=== PATIENT | female | born 1990 | race African-American/Black ===

== ENCOUNTER 2023-05-08 14:09 | Inpatient (IN) | payer OTHER ==
[2023-05-08] VITALS (17 sets, daily range): BP systolic 116–146; BP diastolic 59–90; PULSE 85–108; TEMP 97.5–98
[2023-05-08] MEDS ORDERED: LR & Oxytocin 500 ML IV SCH (14:45)
[2023-05-08] MEDS ORDERED: LR 1,000 ML IV SCH (14:45)
[2023-05-08] MEDS ORDERED: PRENATAL (15:11)
[2023-05-08] MEDS ORDERED: UNISOM25 MG PO (15:11)
[2023-05-08] MEDS ORDERED: EUTHYROX25 MCG PO (15:11)
[2023-05-08 16:04] LABS: BASO % 0.6 % (0.0-2.0); GRAN # 4.9 K/mm3 (1.4-6.5); GRAN % 69.1 % (42.2-75.2); HEMATOCRIT 38.7 % (37.0-47.0); HEMOGLOBIN 13.6 g/dl (12.5-16.0); LYMPH # 1.4 K/mm3 (1.2-3.4); LYMPH % 19.3 % (20.0-51.0); MEAN CELL VOLUME 87 fl (80.0-100.0); MEAN CORPUSCULAR HEMOGLOBIN 31 pg (27-31); MEAN CORPUSCULAR HGB CONC 35 g/dl (33.0-37.0); MONO # 0.7 K/mm3 (0.1-0.6); MONO % 10.4 % (1.7-9.3); PLATELET COUNT 269 K/mm3 (130-400); RED BLOOD COUNT 4.43 M/mm3 (4.10-5.30); REDCELL DISTRIBUTION WIDTH-CV 12.2 % (11.5-14.5)
[2023-05-08 16:09] LABS: ALBUMIN 2.9 gm/dL (3.5-5.0); CALCIUM 9.7 mg/dL (8.4-10.2); CREATININE, serum 0.83 mg/dL (0.57-1.11); POTASSIUM 3.7 mmol/L (3.5-4.5); TOTAL PROTEIN 6.9 gm/dL (6.2-8.1)
[2023-05-08 16:45] LABS: BILIRUBIN,TOTAL 0.3 mg/dL (0.2-1.2)
[2023-05-08 17:19] LABS: COLLECTION METHOD CLEAN CATCH
[2023-05-08 17:26] LABS: PH 6.5 (5.0-8.5); URINE APPEARANCE CLEAR (CLEAR/HAZY); URINE BLOOD NEGATIVE (NEGATIVE); URINE COLOR YELLOW (YELLOW); URINE GLUCOSE NEGATIVE (NEGATIVE); URINE KETONE NEGATIVE (NEGATIVE); URINE NITRATE NEGATIVE (NEGATIVE); URINE PROTEIN(semi-quant) NEGATIVE (NEGATIVE); URINE UROBILINOGEN 0.2 E.U/dL (0.2-1.0)
--- NOTE | 2023-05-08 18:45 | NUR ---
Pt standing at the side of the bed, wireless monitor on and monitoring status. Pt coping well with ctx and breathing through them at this time. Denies any needs to this RN
[2023-05-08] MEDS ORDERED: ePHEDrine 50 MG/10 ML VIAL IV PRN (19:00)
[2023-05-08] MEDS ORDERED: diphenhydrAMINE 25 MG CAP PO PRN (19:00)
[2023-05-08] MEDS ORDERED: Naloxone 0.4 MG/ML VIAL IV PRN (19:00)
[2023-05-08] MEDS ORDERED: Ondansetron 4 MG/2 ML VIAL IV PRN (19:00)
[2023-05-08] MEDS ORDERED: diphenhydrAMINE 50 MG/ML 1 ML VIAL IV PRN (19:00)
--- NOTE | 2023-05-08 19:00 | NUR ---
Pt standing next to the bed, I am at the bedside attempting to obtain heart tones. Pt is currently on the wireless monitor and I am having difficulty obtaining heart tones at this time. Pt assisted into bed to monitor status.
--- NOTE | 2023-05-08 19:15 | NUR ---
190: RN observed pt to be having tachysystole with her ctx, RN at bedside assessing ctx. 1909: Pitocin changed from 14 mU to 12 mU at this time due to tachysystole. RN at bedside monitoring maternal response.
--- NOTE | 2023-05-08 19:45 | NUR ---
1944: Pitocin decreased again at this time to 10 mU due to the continued tachysystole. Pt continues to cope with labor and the ctx well at this time.
--- NOTE | 2023-05-08 20:00 | NUR ---
2028: Pitocin decreased at this time to 8 mU due to continued tachysystole. Dr Kirk given update on pt and RN informed that Dr Kirk will be calling Dr Carrera to assume care.
[2023-05-08] MEDS ORDERED: ROPivacaine PF 0.2% 200 ML IV ONE (21:52)
--- NOTE | 2023-05-08 22:15 | NUR ---
2199: Variable decels continue to occur, Dr Carrera is on the unit assessing maternal and status. Pitocin is currently at 4 mU. 2207: Deep variable decel to the 70's noted. Pt repositioned more onto her left side, then repositioned to her right side with slow recovery. heart rate remains in the low 100's. Dr Carrera at the bedside. 2209: SVE 3/50/-2 at this time. Verbal orders to turn off pitocin given. 2211: Pitocin turned off at this time.
--- NOTE | 2023-05-08 23:00 | NUR ---
2245: Dr Carrera remains on the unit and gives a verbal order at this time to restart the pitocin at 2 mU. This RN resumes pitocin administration. 2249: Moderate variability noted on the tracing, continue to note intermittent variable decels. 2258: Variable decel noted at this time. Pt remains on her left side.
--- NOTE | 2023-05-08 23:15 | NUR ---
2309: Deep variable decel to the 60's observed at this time. RN enters room and attempts to reposition pt to aid in recovery. 2312: heart rate recovers to baseline of 125 at this time. RN remains at bedside monitoring maternal and status.
--- NOTE | 2023-05-08 23:30 | NUR ---
Continue to observe recurrent variable decels on this tracing. Moderate variability also observed. I am unable to increase the pitocin infusion due to the recurrent variable decels.
[2023-05-09] VITALS (22 sets, daily range): BP systolic 104–139; BP diastolic 56–82; PULSE 77–105; TEMP 97.5–98.1
--- NOTE | 2023-05-09 00:15 | NUR ---
Dr Carrera at the bedside assessing maternal and status. Informs pt that she has not made any cervical change at this time and that her cervix is still very posterior. Dr Carrera informs pt that the fetus is also having recurrent variable decels and that right now it isn't very worrisome, if it continues, even with position changes, the conversation for a section will need to be had. Opportunity for questions given and answered.
--- NOTE | 2023-05-09 00:30 | NUR ---
Dr Carrera remains at the bedside discussing status and wellbeing with the pt. Fetus continues to have recurrent variable decels as the discussion is ongoing. Dr Carrera informs the pt that with the recurrent decels, a is recommended at this time. Pt agrees to this plan of care and preparation for surgery is made.
[2023-05-09] MEDS ORDERED: Ondansetron 4 MG/2 ML VIAL ONE (00:34)
[2023-05-09] MEDS ORDERED: NS 20 ML IV ONE (00:34)
--- NOTE | 2023-05-09 00:50 | NUR ---
Live male fetus delivered via primary section for non-reassuring heart tones and failure to progress. Infant taken to radiant warmer after delivery and care assumed by Nursery RN's. Placenta delivered spontaneously, uterus examined by Dr Kirk and Dr Carrera and surgical procedures continued and completed.
[2023-05-09] MEDS ORDERED: fentaNYL 50 MCG/ML 5 ML VIAL ONE (00:52)
[2023-05-09] MEDS ORDERED: Oxytocin 10 UNITS/ML VIAL ONE (00:52)
[2023-05-09] MEDS ORDERED: Ketorolac 60 MG/2 ML VIAL IM ONE (01:10)
[2023-05-09] MEDS ORDERED: LR 1,000 ML IV ONE (01:24)
[2023-05-09] MEDS ORDERED: Magnes Hydrox (MOM) 80 MG/ML 30 ML CUP PO PRN (01:30)
[2023-05-09] MEDS ORDERED: Loratadine 10 MG TAB PO PRN (01:30)
[2023-05-09] MEDS ORDERED: oxyCODONE 5 MG TAB PO PRN (04:15)
[2023-05-09] MEDS ORDERED: LR 1,000 ML IV PRN (04:15)
[2023-05-09] MEDS ORDERED: Acetaminophen 500 MG TAB PO SCH (04:15)
[2023-05-09] MEDS ORDERED: Morphine 4 MG/ML VIAL IV PRN (04:15)
[2023-05-09] MEDS ORDERED: Measles/Mumps/Rubella Virus Vaccine Live w Diluent 0.5 ML VIAL SQ SCH (04:15)
[2023-05-09] MEDS ORDERED: Naloxone 0.4 MG/ML VIAL IV PRN (04:15)
[2023-05-09] MEDS ORDERED: Ondansetron 4 MG/2 ML VIAL IV PRN (04:15)
[2023-05-09] MEDS ORDERED: Ibuprofen 600 MG TAB PO SCH (07:28)
[2023-05-09] MEDS ORDERED: Sennosides/Docusate 8.6-50 MG TAB PO SCH (08:00)
[2023-05-09] MEDS ORDERED: Prenatal Vitamins/Iron/FA TAB PO SCH (09:00)
--- NOTE | 2023-05-09 09:40 | NUR ---
Initial visit attempt; Nurse with family, Media Marketing Manager left card offering congratulations and God's blessings for their son and information regarding the availability of Spiritual [facility] at [facility].
--- NOTE | 2023-05-09 10:21 | NUR ---
ATTEMPTED TO GET PATIENT OUT OF BED AND PULL OCAMPO OUT. PATIENT CAN LIFT LEGS AND MOVE WELL BUT WHEN TRYING TO STAND PATIENT CANNOT BEAR HER OWN WEIGHT. PATIENT PUT BACK INTO BED AND INFORMED WE WILL TRY AGIAN IN A COUPLE HOURS. PATIENT CLEANED UP AND PAD CHANGED. PATIENT DOES NOT WANT ANY FURTHER PAIN MEDICATION AT THIS TIME. WILL CONTINUE TO MONITOR
[2023-05-09] MEDS ORDERED: traZODone 50 MG TAB PO PRN (21:00)
[2023-05-10 04:47] LABS: HEMATOCRIT 32.7 % (37.0-47.0); HEMOGLOBIN 11.5 g/dl (12.5-16.0)
[2023-05-10] MEDS ORDERED: IBU600 MG PO (08:17)
[2023-05-10] MEDS ORDERED: TYLENOL 500MG500 MG PO (08:17)
[2023-05-10] MEDS ORDERED: ROXICODONE 55 MG/TAB PO (08:17)
[2023-05-10 09:43] VITALS: BP 122/68; PULSE 104; TEMP 97.6
--- NOTE | 2023-05-10 11:23 | NUR ---
Neurology Technician met with patient to discuss resources per her request. Patient has insurance through [facility] and she advised it is a plan specifically for students. Patient is concerned about her bill after her insurance is billed. [employer] provided Financial Assistance Application, which patient completed and returned. [employer] emailed the completed FAA to Desire, Financial Counselor. TYRONE also provided Desire's contact information to patient. 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 Patient's , Tan and her two other children (ages 5 and 4) live [place]. Patient's mother is here to stay with her for two weeks and provide support. Patient has all supplies needed for baby at home. Patient plans to be off work for six weeks and has not established childcare at this time. SW provided and reviewed local community and mental health resources. 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 Patient did verbalize some frustration with her milk not coming in yet, but stated she is pumping and has been seen by Kimberly, business systems consultant. SW also advised patient that Kimberly can see patient's after they leave the hospital. Patient had no further questions or concerns at this time.
[2023-05-10 17:37] VITALS: BP 129/89; PULSE 99
[2023-05-10 20:05] VITALS: BP 135/88; PULSE 106; TEMP 98.1
[2023-05-11 07:28] VITALS: BP 132/80; PULSE 90; TEMP 97.8
[2023-05-11 17:11] VITALS: BP 147/86; PULSE 98; TEMP 98.3
[2023-05-11 20:45] VITALS: BP 120/69; PULSE 80; TEMP 98.1
[2023-05-12 07:20] VITALS: BP 134/60; PULSE 98; TEMP 98
== END 2023-05-12 17:00 | disposition home or self-care (01) | DRG 788 ==
LOC: OB 14:09 → LDR 14:27 → OB 05-09 02:10
PROVIDERS: ADMIT Obstetrics & Gynecology
PROC: 3E033VJ Introduction of Other Hormone into Peripheral Vein, Percutaneous Approach (ICD-10-PCS; 2023-05-08)
PROC: 10D00Z1 Extraction of Products of Conception, Low, Open Approach (ICD-10-PCS; principal; 2023-05-09)
DX: O41.03X0 Oligohydramnios, third trimester, not applicable or unspecified (principal); Z37.0 Single live birth; O76 Abnormality in fetal heart rate and rhythm complicating labor and delivery; O34.593 Maternal care for other abnormalities of gravid uterus, third trimester; N85.6 Intrauterine synechiae; O99.02 Anemia complicating childbirth; D57.3 Sickle-cell trait; O13.4 Gestational [pregnancy-induced] hypertension without significant proteinuria, complicating childbirth; O99.344 Other mental disorders complicating childbirth; F32.A Depression, unspecified; O69.81X0 Labor and delivery complicated by cord around neck, without compression, not applicable or unspecified; Z3A.38 38 weeks gestation of pregnancy
CPT/HCPCS: J0665; J0690; J1885; J2405; J2590; J2795; J3010; J7120